=== PATIENT | female | born 1945 | race Caucasian/White ===

== ENCOUNTER 2023-08-23 08:38 | Inpatient (IN) ==
--- NOTE | 2023-08-04 14:35 | PAT Medication Instructions ---
Medication Instructions Date of Service August 04, 2023 Home Medications aspirin 81 mg capsule 81 mg PO QAM atorvastatin 40 mg tablet 40 mg PO HS cholecalciferol (vitamin D3) 125 mcg (5,000 unit) tablet (Vitamin D3) 125 mcg PO QAM cyanocobalamin (vitamin B-12) 1,000 mcg tablet (Vitamin B-12) 1,000 mcg PO QAM furosemide 40 mg tablet 40 mg PO DAILY PRN Edema gabapentin 300 mg capsule 300 mg PO TID losartan 100 mg tablet 100 mg PO QAM metoprolol succinate 25 mg tablet,extended release 24 hr 12.5 mg PO QAM montelukast 10 mg tablet 10 mg PO HS omeprazole 40 mg capsule,delayed release 40 mg PO DAILY PRN gerd thiamine HCl (vitamin B1) 100 mg tablet (Vitamin B-1) 100 mg PO QAM ASK your prescriber and surgeon aspirin 81 mg capsule 81 mg PO QAM DO NOT take the morning of surgery cholecalciferol (vitamin D3) 125 mcg (5,000 unit) tablet (Vitamin D3) 125 mcg PO QAM cyanocobalamin (vitamin B-12) 1,000 mcg tablet (Vitamin B-12) 1,000 mcg PO QAM furosemide 40 mg tablet 40 mg PO DAILY PRN Edema losartan 100 mg tablet 100 mg PO QAM thiamine HCl (vitamin B1) 100 mg tablet (Vitamin B-1) 100 mg PO QAM Take morning of surgery With a small sip of water, OTHERWISE NOTHING TO EAT OR DRINK AFTER MIDNIGHT: gabapentin 300 mg capsule 300 mg PO TID metoprolol succinate 25 mg tablet,extended release 24 hr 12.5 mg PO QAM omeprazole 40 mg capsule,delayed release 40 mg PO DAILY PRN gerd (if needed) Take evening before surgery atorvastatin 40 mg tablet 40 mg PO HS furosemide 40 mg tablet 40 mg PO DAILY PRN Edema (if needed) gabapentin 300 mg capsule 300 mg PO TID montelukast 10 mg tablet 10 mg PO HS omeprazole 40 mg capsule,delayed release 40 mg PO DAILY PRN gerd (if needed) Other Notes If you have any questions please call us at [phone] or [phone] or [phone] or [phone]
--- NOTE | 2023-08-09 14:08 | Anesthesiology Consultation ---
Date of Service August 09, 2023 Assessment & Plan (1) Encounter for pre-operative examination: - Infectious disease screening: Per assessment on 08/09/23: No known infectious disease contacts or current infectious disease symptoms. No noted recent Covid positive test result. - Heavy ETOH use: 4-6 beers/day (evening, no morning ETOH use per patient) - Cardiology visit (08/05/23): "Nuclear stress testing in April showed a very small apical infarct; but no evidence of reversible defects to suggest ischemia. She may therefore proceed with the planned operation without additional cardiac testing. She may be considered low to intermediate risk for perioperative cardiac complications (history of CAD with PCI in 2014 and chronic diastolic HF).. judicious use of IV fluids and blood products in the perioperative period is advised" - Patient acceptable risk for surgery pending surgeon-ordered PCP clearance (Dr. Calderon's office, appt 08/12). Chart Review Chart Review: Patient seen in Pre Admission Testing Teaching & Discussion Pre-Anesthesia Teaching/Discussion Notes: Instructed NPO after midnight before surgery,except medications with 15 cc of water. Medication instructions provided according to the PAT guidelines. History Surgery Operation Date: 08/23/23 07:45 Proposed Procedures p L2-S1 Decompression and Fusion with Spinal cord Monitoring - Macario Jones, Height/Weight Height: 5 ft 5 in Weight: 97.976 kg Allergies Allergy/AdvReac Type Severity Reaction Status Date / Time ramipril AdvReac Cough Verified 08/04/23 13:24 Medications Home Medications Medication Instructions Recorded Confirmed Last Taken aspirin 81 mg capsule 81 mg PO QAM 08/04/23 08/04/23 Unknown atorvastatin 40 mg tablet 40 mg PO HS 08/04/23 08/04/23 Unknown cholecalciferol (vitamin D3) 125 125 mcg PO QAM 08/04/23 08/04/23 Unknown mcg (5,000 unit) tablet (Vitamin D3) cyanocobalamin (vitamin B-12) 1,000 mcg PO QAM 08/04/23 08/04/23 Unknown 1,000 mcg tablet (Vitamin B-12) furosemide 40 mg tablet 40 mg PO DAILY PRN Edema 08/04/23 08/04/23 Unknown gabapentin 300 mg capsule 300 mg PO TID 08/04/23 08/04/23 Unknown losartan 100 mg tablet 100 mg PO QAM 08/04/23 08/04/23 Unknown metoprolol succinate 25 mg 12.5 mg PO QAM 08/04/23 08/04/23 Unknown tablet,extended release 24 hr montelukast 10 mg tablet 10 mg PO HS 08/04/23 08/04/23 Unknown omeprazole 40 mg capsule,delayed 40 mg PO DAILY PRN gerd 08/04/23 08/04/23 Unknown release thiamine HCl (vitamin B1) 100 mg 100 mg PO QAM 08/04/23 08/04/23 Unknown tablet (Vitamin B-1) Past Medical History Medical History Asthma Diastolic heart failure GERD (gastroesophageal reflux disease) occasional Hemochromatosis Follows with [facility], monitored with labs every 4 months (phlebotomy PRN, no recent phlebotomy required per patient) History of vertigo Hx of myocardial infarction Approximately 2014 > stents x2 Follows with Dr. 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" + unilateral oophorectomy Hx of appendectomy Hx of bilateral cataract extraction Hx of colonoscopy Hx of foot surgery metal removed from toe/top of foot (from accident) Hx of hysterectomy + partial ("half of") removal of remaining ovary Past Anesthesia History No Hx of Anesthesia Complications and No Family Hx of Anesthesia Complications History of PONV No Hx of PONV and No Hx of Motion Sickness Social History Smoking Status: Former smoker Do You Dip or Chew Tobacco: No Smoking End Date: Quit 2014 Hx Alcohol Use: Yes Alcohol type: beer alcohol intake frequency: 3 or more drinks per day (4-6 beers/day (evening, no morning ETOH use)) Hx Substance Use: No substance use type: does not use Review of Systems Patient denies chest pain, shortness of breath, fever, chills, cough, wheezing, palpitations. Physical Exam Vital Signs VITALS BP 101/57 P 64 TEMP 98.5 SP02 91%RA RESP 18 PHYSICAL Full cervical extension range of motion. Full TMJ range of motion. TMD 3 finger breaths Mallampati Score 3 Dentition: full upper lower, 7 remaining lower teeth Lungs: clear throughout to auscultation Cardiac: regular rate and rhythm, no murmurs noted Spine: normal Carotid arteries: negative bruit Extremities: no LE edema Short, thick neck Lab Results Anesthesia Preop Results Results Anesthesia Widget: Blood Type O Positive 08/09/23 Antibody Screen NEGATIVE 08/09/23 Testing Laboratory Results 08/06/23 WBC 5.72 H/H 14.2/43.2 PLATELETS 173 SODIUM 137 POTASSIUM 4.2 CHLORIDE 106 CO2 25.1 BUN 15.5 CREATININE 0.79 GLUCOSE 108 HGBA1C 5.6% PT 12.1 PTT 29.8 INR 1.06 UA negative nitrite/leuk est/blood Electrocardiogram Date: 04/14/23 Sinus rhythm at 73 bpm. Low QRS voltage in chest leads. Cannot rule out anterior infarct, age undetermined. Possible inferior infarct, probably old. Moderate ST depression. *Subsequent nuclear stress test 04/2023 and cardiology preop evaluation appointment 07/2023.* Chest X-Ray Date: 04/14/23 No acute cardiopulmonary disease. Lower lung atelectasis in setting of low lung volume. Stress Test Date: 05/10/23 Type: nuclear Lexiscan stress EKG is not indicative of ischemia. Resting EKG reveals sinus rhythm with low voltage complexes, and ageindeterminant anterior infarct cannot be completely ruled out. No significant STT changes seen with Lexiscan, as compared to baseline. Myocardial perfusion imaging: There is no transient ischemic dilation of the left ventricle during stress. No myocardial perfusion defects noted. Calculated LVEF greater than 65%.
[~2023-08-23 08:38] MED LIST: ACETAMINOPHEN 500 MG TAB PO SCH; CeleBREX 200 MG CAP PO SCH; GABAPENTIN 300 MG CAP PO SCH; LR 15ML/HR IV SCH; LR 60ML/HR IV SCH; ceFAZolin 2000MG 2,000 MG/15 ML SYR IV SCH
[2023-08-23] MEDS ORDERED: PHENYLEPHRINE HCL 10 MG/ML VIAL ONE (08:51)
[2023-08-23] MEDS ORDERED: LIDOCAINE 2% 2 ML VIAL/AMP(20MG/ML) INFIL ONE (08:51)
[2023-08-23] MEDS ORDERED: PROPOFOL IV EMULSION 10 MG/ML 20 ML VIAL IV ONE (08:51)
[2023-08-23] MEDS ORDERED: ONDANSETRON INJ 2 MG/ML 2 ML VIAL ONE (08:51)
[2023-08-23] MEDS ORDERED: DEXAMETHASONE SOD INJ 4 MG/ML VIAL ONE (08:51)
[2023-08-23] MEDS ORDERED: MIDAZOLAM HCL 1 MG/ML 2ML VIAL ONE ×2 (08:51→10:59)
[2023-08-23] MEDS ORDERED: ROCURONIUM BROMIDE 10 MG/ML 5 ML VIAL IV ONE ×2 (08:51→11:16)
[2023-08-23] MEDS ORDERED: fentaNYL citrate PF 100 MCG/2 ML VIAL ONE ×2 (08:51→11:28)
--- NOTE | 2023-08-23 10:30 | History & Physical Bridge Note ---
Date of Service August 23, 2023 History & Physical Bridge Note I have examined the patient, reviewed the History & Physical and in the interval since the performance of the History & Physical I have noted the following changes of clinical significance: no changes noted
--- NOTE | 2023-08-23 10:31 | History & Physical Report ---
Date of Service August 23, 2023 Assessment & Plan (1) Neurogenic claudication due to lumbar spinal stenosis: Plan: L2-S1 decompression and fusion History of Present Illness Chief Complaint: Back and bilateral leg pain Primary Care Provider: NO PCP This is a 77-year-old female who presents with chronic persistent back and leg pain after failing course of nonoperative care she is here for surgical intervention. Allergies Allergy/AdvReac Type Severity Reaction Status Date / Time ramipril AdvReac Cough Verified 08/23/23 09:07 Home Medications Medication Instructions Recorded Confirmed Type aspirin 81 mg capsule 81 mg PO QAM 08/04/23 08/23/23 History atorvastatin 40 mg tablet (Lipitor) 40 mg PO HS 08/04/23 08/23/23 History cholecalciferol (vitamin D3) 125 125 mcg PO QAM 08/04/23 08/23/23 History mcg (5,000 unit) tablet (Vitamin D3) cyanocobalamin (vitamin B-12) 1,000 mcg PO QAM 08/04/23 08/23/23 History 1,000 mcg tablet (Vitamin B-12) furosemide 40 mg tablet (Lasix) 40 mg PO DAILY PRN Edema 08/04/23 08/23/23 History gabapentin 300 mg capsule 300 mg PO TID 08/04/23 08/23/23 History losartan 100 mg tablet 100 mg PO QAM 08/04/23 08/23/23 History metoprolol succinate 25 mg 12.5 mg PO QAM 08/04/23 08/23/23 History tablet,extended release 24 hr montelukast 10 mg tablet 10 mg PO HS 08/04/23 08/23/23 History omeprazole 40 mg capsule,delayed 40 mg PO DAILY PRN gerd 08/04/23 08/23/23 History release thiamine HCl (vitamin B1) 100 mg 100 mg PO QAM 08/04/23 08/23/23 History tablet (Vitamin B-1) Past Med/Surg History Medical History Asthma Diastolic heart failure GERD (gastroesophageal reflux disease) occasional Hemochromatosis Follows with [facility] heme/onc, monitored with labs every 4 months (phlebotomy PRN, no recent phlebotomy required per patient) History of vertigo Hx of myocardial infarction Approximately 2014 > stents x2 Follows with Dr. 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" + unilateral oophorectomy Hx of appendectomy Hx of bilateral cataract extraction Hx of colonoscopy Hx of foot surgery metal removed from toe/top of foot (from accident) Hx of hysterectomy + partial ("half of") removal of remaining ovary Social History Smoking Status: Former smoker Tobacco Type: Cigarettes Smoking End Date: Quit 2014; Second Hand Exposure: Yes (hx); Do You Dip or Chew Tobacco: No; Tobacco Cessation Education Requested by Patient: No Hx Alcohol Use: Yes Alcohol type: beer Hx Substance Use: No Preferred Language: Japanese Communication Ability: Effective Spiritual Care Coordinator Required: No Beliefs That Will Affect Care: None Current Living Situation: Alone Other Information That Helps Us Care for You: No Feels Safe at Home: Yes Safety Concerns: Feels Safe At This Time Assistive Devices: Denture - Upper and Glasses Physical Exam Physical Exam: Patient is alert and oriented Heart regular in rhythm lungs clear Results & Data Results & Data Vital Signs (Past 12 Hours) Vital Signs Temp Pulse Resp BP Pulse Ox O2 Del Method 08/23/23 09:11 36.6 C 65 18 137/73 92 Room Air
[2023-08-23] MEDS ORDERED: ePHEDrine sulfate 50 MG/ML AMP IV PRN (10:40)
[2023-08-23] MEDS ORDERED: ONDANSETRON INJ 2 MG/ML 2 ML VIAL IV PRN ×2 (10:40→14:45)
[2023-08-23] MEDS ORDERED: PROMETHAZINE HCL 12.5 MG in SODIUM CHLORIDE 0.9% 50 ML IV PRN ×2 (10:40→14:45)
[2023-08-23] MEDS ORDERED: ATROPINE SULFATE 0.1 MG/ML 10ML SYR IV PRN (10:40)
[2023-08-23] MEDS ORDERED: fentaNYL citrate PF 100 MCG/2 ML VIAL IV PRN (10:40)
[2023-08-23] MEDS ORDERED: HYDROmorphone INJ 2 MG/ML SYR/VIAL IV PRN (10:40)
[2023-08-23] MEDS ORDERED: ceFAZolin 330 MG/ML 1 GM VIAL ONE (10:47)
[2023-08-23] MEDS ORDERED: BUPIVACAINE/EPINEPHRINE 0.5% MPF 1:200,000 30 ML VIAL ONE (10:47)
[2023-08-23] MEDS ORDERED: ePHEDrine sulfate 50 MG/5 ML SYR ONE (11:49)
[2023-08-23] MEDS ORDERED: FLOSEAL HEMOSTATIC MATRIX 10ML TOP ONE (11:53)
[2023-08-23] MEDS ORDERED: SURGICEL ABSORB HEMOSTAT 2IN X 14IN TOP ONE (12:24)
[2023-08-23] MEDS ORDERED: SUGAMMADEX SODIUM 200 MG/2 ML VIAL IV ONE (13:10)
--- NOTE | 2023-08-23 13:18 | Operative Report ---
Post Operative Report Pre & Post Diagnosis Operation Date: 08/23/23 10:25 Pre-Op Diagnosis: Neurogenic claudication due to lumbar spinal stenosis, L2-S1 Post-Op Diagnosis: Neurogenic claudication due to lumbar spinal stenosis, L2-S1 I identified the patient and participated in the time-out.: Yes Procedure Operation Date: 08/23/23 10:25 Actual Procedures #1 lumbar decompression with bilateral medial facetectomies and foraminotomies L2-L3, L3-L4, L4-5 and L5-S1. #2 posterior spinal fusion L2-S1. #3 placed posterior segmental instrumentation L2-S1. #4 interbody fusion L4-L5. #5 placement Spira limb by 26 mm at L4-5. #6 placement locally harvested morselized autograft in the posterior gutters. #7 placement of infuse collagen sponge combined with Koros in the posterior lateral gutters and Morpheus interbody space. Surgeon Macario Jones, DO Production Designer Paula Keyes Estimated Blood Loss 950 Findings See Below The patient is 5 foot 5 weighing over 100 kg with a BMI in excess of 36. This combined with an EBL of greater than 950 cc created significant technical difficulty from positioning exposure to final skin closure. This at least 50% increased operative time. Specimens None Indications This is a 77-year-old female who presents above-mentioned diagnosis after failed extensive course of nonoperative care is here for surgical invention. Description of Procedure Patient was met with identified informed consent obtained. Patient was then taken to the operative suite underwent patient placed in a prone position the Seney table top Fritz frame. All bony prominences well-padded eyes inspected to ensure no external pressure placed upon the. This point the lumbar spine was prepped and draped in a sterile fashion. Sharp dissection with the assistance of Bovie cautery from down to and exposing the lamina and transverse processes of L2-L3 L4-5 and S1 levels bilaterally from caudal cephalad fashion complete laminectomy of L5 4 3 and 2 was performed including bilateral medial facetectomies and foraminotomies addressing severe spinal stenosis. Pedicle screws were then placed in L2 L3-L4-L5 and S1 levels bilaterally with assistance of fluoroscopy the pelvis as wale contoured and placed. By way of transforaminal approach on the left complete discectomy L4-L5 was performed endplates guided to subcortical bleeding bone and 11 x 26 mm Spira cage filled with Morpheus bone graft tapped into position. The rods were then locked into final position bilaterally. The transverse processes of L2 L3-L4-L5 and the sacral ala burred to subcortical bleeding bone. Infuse collagen sponge, with Koros and local aut ograft placed in the posterior gutters. 15 round CHANG drain inserted. The incision was then closed with 1 Vicryl the fascia 2-0 Vicryl subcutaneously and 4 Monocryl for final skin closure. Steri-Strips sterile dressing placed. Patient awakened taken to PACU stable condition. Please note spinal cord monitoring was utilized at the procedure no changes noted. Lastly Paula Keyes was present at the entire procedure while the patient positioning complex portion of the surgery and final skin closure. I attest to the content of the Intraoperative Record and any orders documented therein. Any exceptions are noted below.
--- NOTE | 2023-08-23 13:33 | Fluoroscopy Report ---
INTRAOPERATIVE RADIOGRAPHS CLINICAL HISTORY: Lumbar spinal fusion. Fluoro time: 36 seconds Ka,r: 32.59 mGy FINDINGS: 3 spot fluoroscopic views of the lumbar spine are presented. There is postsurgical change f rom discectomy at L4-L5 with laminectomy and posterior fusion from L2-S1. Interpedicular screws are p resent at all levels. The orthopedic hardware appears intact. IMPRESSION: Intraoperative images from lumbar spinal fusion surgery as above. Electronically signed by: Radames Donis M.D. 08/23/2023 1:32 PM
[2023-08-23] MEDS ORDERED: SODIUM CHLORIDE 0.9% 1,000 ML IV SCH (14:45)
[2023-08-23] MEDS ORDERED: FAMOTIDINE 20 MG TAB PO PRN (14:45)
[2023-08-23] MEDS ORDERED: NALOXONE HCL 0.4 MG/1 ML VIAL/CARP IV PRN (14:45)
[2023-08-23] MEDS ORDERED: ALUMINUM/MAGNESIUM SUSP 30 ML UDC PO PRN (14:45)
[2023-08-23] MEDS ORDERED: LORazepam 0.5 MG TAB PO PRN (14:45)
[2023-08-23] MEDS ORDERED: hydrOXYzine HCl 25 MG TAB PO PRN (14:45)
[2023-08-23] MEDS ORDERED: HYDROmorphone INJ 0.5 MG/0.5 ML SYR IV PRN (14:45)
[2023-08-23] MEDS ORDERED: diphenhydrAMINE Capsule 25 MG CAP PO PRN (14:45)
[2023-08-23] MEDS ORDERED: SOD PHOSPHATE/SOD BIPHOSPHATE ENEMA 132 ML BTL PR PRN (14:45)
[2023-08-23] MEDS ORDERED: DO NOT ADMINISTER FLU VACCINE PRN (14:45)
[2023-08-23] MEDS ORDERED: HYDROmorphone INJ 1 MG/ML SYRINGE IV PRN (14:45)
[2023-08-23] MEDS ORDERED: METOCLOPRAMIDE HCL INJ 5 MG/ML 2 ML VIAL IV PRN (14:45)
[2023-08-23] MEDS ORDERED: FUROSEMIDE 40 MG TAB PO PRN (14:45)
[2023-08-23] MEDS ORDERED: LORazepam 0.5 MG in SYRINGE 0.25 ML IV PRN (14:45)
[2023-08-23] MEDS ORDERED: traMADol HCL 50 MG TABLET PO PRN (14:45)
[2023-08-23] MEDS ORDERED: ONDANSETRON 4 MG OD TAB PO PRN (14:45)
[2023-08-23] MEDS ORDERED: ACETAMINOPHEN 1,000 MG/100 ML VIAL IV PRN (14:45)
[2023-08-23] MEDS ORDERED: MAGNESIUM HYDROXIDE SUSP 30 ML UDC PO PRN (14:45)
[2023-08-23] MEDS ORDERED: bisacodyL 10 MG SUPP PR PRN (14:45)
[2023-08-23] MEDS ORDERED: DO NOT ADMINISTER PNEUMOCOCCAL VACCINE PRN (14:45)
[2023-08-23] MEDS ORDERED: PANTOprazole 40 MG TAB PO PRN (15:00)
--- NOTE | 2023-08-23 15:30 | Anesthesiology Progress Note ---
Date of Service August 23, 2023 Anesthesia Post Procedure Vital Signs Vital Signs: Temp Pulse Pulse Resp BP Pulse Ox O2 Del Method 08/23/23 15:28 36.3 C L 70 18 115/75 98 Nasal Cannula 08/23/23 14:53 36.3 C L 65 16 163/70 H 95 Nasal Cannula 08/23/23 14:20 36.3 C L 64 14 110/70 98 Nasal Cannula 08/23/23 13:50 68 13 121/69 96 Oxymask 08/23/23 13:40 73 11 L 130/71 98 Oxymask 08/23/23 13:32 36.8 C 70 18 147/78 H 95 Oxymask 08/23/23 09:11 36.6 C 65 18 137/73 92 Room Air O2 Flow Rate 08/23/23 15:28 2 08/23/23 14:53 2 08/23/23 14:20 2 08/23/23 13:50 3 08/23/23 13:40 5 08/23/23 13:32 9 08/23/23 09:11 Pain Intensity Back: Pain Intensity: 0 Transfer of Care Handoff Completed per policy Notes Mental Status: alert / awake / arousable and participated in evaluation Patient Amnestic to Procedure: Yes Nausea / Vomiting: adequately controlled Pain: adequately controlled Airway Patency, RR, SpO2: stable & adequate BP & HR: stable & adequate Hydration State: stable & adequate Anesthetic Complications: no major complications apparent
--- NOTE | 2023-08-23 16:06 | Hospitalist Consultation ---
Date of Consultation August 23, 2023 Assessment & Plan (1) S/P spinal surgery: Lumbar spinal fusion with Dr. Jones on 08/23 Postop lumbar spine x-ray revealed orthopedic hardware intact Perioperative antibiotics, DVT PPx, fluids, and pain control per the primary team Hemoglobin was 14.2 and HCT 43.2 on 08/06/2023 Notable 950 cc EBL during surgery Agree with a.m. CBC, BMP; we will follow PT/OT consulted (2) Hypertension: BP 119/76 at time of consult Okay to continue metoprolol Hold losartan x 1 day; restart on the morning of 08/25 (3) Hyperlipidemia: Continue atorvastatin (4) GERD (gastroesophageal reflux disease): Continue omeprazole, or pantoprazole equivalent (5) Hx of myocardial infarction: Okay to continue aspirin daily for heart stents (6) Asthma: Plan Agree with medical decision making as above: Disposition: MedSurg Advance diet as tolerated VTE PPx: Teds/SCDs Thank you for allowing us to participate in the care of this patient, we will continue to follow. Supervising Physician Co-Signing Physician Notes I personally saw and examined the patient. I independently reviewed the labs, problem list, medication list, past medical history and family history. I verified all werner points and agree with Bernardino Silver PA-C with the following exceptions and/or additions: 77 year old female POD#0 lumbar spinal fusion. EBL 950ml. O/E A&Ox3, HS RRR, no murmurs, Chest CTAB, Abdo SNT, no CVA tenderness A/P VTE/Pain/Bowel management per primary ortho spine team Hold losartan pending pending serial BP measurements GERD - make pantoprazole BERTA daily while here History of Present Illness Reason for Consultation: Medical management Requesting Physician: Macario Jones DO Attending Physician: Macario Jones DO History of Present Illness Karen is a pleasant 77-year-old female with PMH of lumbar spinal stenosis, asthma, diastolic heart failure, GERD, hemochromatosis, vertigo, DC (s/p stents x 2), HLD, HTN, and urgency incontinence. She presented for lumbar decompression of L2 to S1 with Dr. Macario Jones on 08/23. Actual procedures performed: #1 lumbar decompression with bilateral medial facetectomies and foraminotomies L2-L3, L3-L4, L4-5 and L5-S1. #2 posterior spinal fusion L2-S1. #3 placed posterior segmental instrumentation L2-S1. #4 interbody fusion L4-L5. #5 placement Spira limb by 26 mm at L4-5. #6 placement locally harvested morselized autograft in the posterior gutters. #7 placement of infuse collagen sponge combined with Koros in the posterior lateral gutters and Morpheus interbody space. Per review of operative note, EBL was listed as 950 cc, and there was significant technical difficulty from positioning exposure to final skin closure. Patient reports her lower back pain is 3/10 at time of consult; she describes it as dull, constant; no radiation. Movement exacerbates the pain. Patient report s she has been drinking well since being up, but has not had a desire to eat. She has a Hilario in place. No supplemental at home oxygen use or CPAP's. Patient reports that she took aspirin, omeprazole, and metoprolol this morning as instructed. She has no new complaints at time of consult. Former tobacco cigarette smoker; quit in 2014. Patient endorses that she drinks around 4 beers daily; last drink was the evening of 08/22 where she drank around 4 beers; she denies a hx of alcohol withdrawal. Per review of patient's vitals postop, she has been mildly hypertensive, but otherwise vitals have been stable. ROS: Patient endorses lower back pain. Patient denies fever, chills, sweating, headache, dizziness, chest pain, SOB, pleuritic CP, abdominal pain, N/V/D, saddle anesthesia, urinary incontinence, burning with urination, or numbness/tingling in the legs or arms. Allergies Allergy/AdvReac Type Severity Reaction Status Date / Time ramipril AdvReac Cough Verified 08/23/23 09:07 Home Medications Medication Instructions Recorded Confirmed Type aspirin 81 mg capsule 81 mg PO QAM 08/04/23 08/23/23 History atorvastatin 40 mg tablet (Lipitor) 40 mg PO HS 08/04/23 08/23/23 History cholecalciferol (vitamin D3) 125 125 mcg PO QAM 08/04/23 08/23/23 History mcg (5,000 unit) tablet (Vitamin D3) cyanocobalamin (vitamin B-12) 1,000 mcg PO QAM 08/04/23 08/23/23 History 1,000 mcg tablet (Vitamin B-12) furosemide 40 mg tablet (Lasix) 40 mg PO DAILY PRN Edema 08/04/23 08/23/23 History gabapentin 300 mg capsule 300 mg PO TID 08/04/23 08/23/23 History metoprolol succinate 25 mg 12.5 mg PO QAM 08/04/23 08/23/23 History tablet,extended release 24 hr montelukast 10 mg tablet 10 mg PO HS 08/04/23 08/23/23 History omeprazole 40 mg capsule,delayed 40 mg PO DAILY PRN gerd 08/04/23 08/23/23 History release thiamine HCl (vitamin B1) 100 mg 100 mg PO QAM 08/04/23 08/23/23 History tablet (Vitamin B-1) oxycodone 5 mg tablet 5 mg PO Q6H PRN pain #30 tabs 08/24/23 Rx tramadol 50 mg tablet 50 mg PO Q6H PRN pain, moderate 08/24/23 Rx #30 tabs losartan 50 mg tablet 50 mg PO QAM 30 days #30 tabs 08/26/23 Rx Patient History Medical History (Updated 08/24/23 @ 13:02 by Zuleima Pierce PA-C) Diastolic heart failure History of vertigo Urgency incontinence Hemochromatosis Follows with [facility], monitored with labs every 4 months (phlebotomy PRN, no recent phlebotomy required per patient) Hx of myocardial infarction Approximately 2014 > stents x2 Follows with Dr. Balderas/[facility] Asthma Hyperlipidemia Hypertension GERD (gastroesophageal reflux disease) occasional Surgical History (Updated 08/23/23 @ 16:05 by Bernardino Silver PA-C) Hx of bilateral cataract extraction Hx of foot surgery metal removed from toe/top of foot (from accident) Hx of hysterectomy + partial ("half of") removal of remaining ovary History of surgery of uterus "for a tipped uterus" + unilateral oophorectomy Hx of appendectomy Hx of colonoscopy History of heart artery stent Approximately 2014 > Xience stents x2 History of cardiac cath Approximately 2014 > Xience stents x2 Social History Smoking Status: Former smoker Tobacco Type: Cigarettes Second Hand Exposure: Yes (hx); Do You Dip or Chew Tobacco: No; Hx Alcohol Use: Yes Alcohol type: beer Hx Substance Use: No Preferred Language: Tristanian Communication Ability: Effective Special Education Professional Required: No Beliefs That Will Affect Care: None Current Living Situation: Alone Feels Safe at Home: Yes Assistive Devices: Cane Review of Systems Review of Systems: See HPI above Physical Exam Physical Exam: General: no acute distress; pleasant affect; non-toxic appearing; well- nourished; cooperative HEENT: normocephalic, atraumatic; no scleral icterus; PERRLA; moist mucus membrane; vision and hearing grossly intact Neck: supple; no lymphadenopathy; trachea midline Skin: warm, dry without signs of tenting; no cyanosis; no rashes, bruising, lesions, or erythema noted CV: chest wall NTP; RRR; S1/S2 normal; no murmurs/rubs/gallops; pulses intact and symmetric at radial, DP, and PT Lungs: no acute respiratory distress; symmetrical chest wall expansion; clear breath sounds across all lung espana w/o adventitious sounds; no wheezing ABD: Soft, NTP; BS present; no rebound/guarding; no ascites MSK: no tics or fasciculations; no edema noted in the LEs b/l, nonerythematous; patient demonstrates the ability to wiggle toes bilaterally Neuro: A&Ox3; normal mood and affect; fluent speech; no focal deficits; sensation grossly intact in the LEs b/l assessed via light touch at the feet; pulses at the feet neurovascularly intact Results & Data Results & Data Vital Signs (Past 12 Hours) Vital Signs Temp Pulse Pulse Resp BP Pulse Ox O2 Del Method 08/23/23 15:28 36.3 C L 70 18 115/75 98 Nasal Cannula 08/23/23 14:53 36.3 C L 65 16 163/70 H 95 Nasal Cannula 08/23/23 14:20 36.3 C L 64 14 110/70 98 Nasal Cannula 08/23/23 13:50 68 13 121/69 96 Oxymask 08/23/23 13:40 73 11 L 130/71 98 Oxymask 08/23/23 13:32 36.8 C 70 18 147/78 H 95 Oxymask 08/23/23 09:11 36.6 C 65 18 137/73 92 Room Air O2 Flow Rate 08/23/23 15:28 2 08/23/23 14:53 2 08/23/23 14:20 2 08/23/23 13:50 3 08/23/23 13:40 5 08/23/23 13:32 9 08/23/23 09:11 Laboratory Results Abnormal lab results 08/23/23 Range/Units 08:59 Crossmatch See Detail Diagnostic Findings Lumbar Spine X-Ray 08/23/23 10:25 INTRAOPERATIVE RADIOGRAPHS CLINICAL HISTORY: Lumbar spinal fusion. Fluoro time: 36 seconds Ka,r: 32.59 mGy FINDINGS: 3 spot fluoroscopic views of the lumbar spine are presented. There is postsurgical change from discectomy at L4-L5 with laminectomy and posterior fusion from L2-S1. Interpedicular screws are present at all levels. The orthopedic hardware appears intact. IMPRESSION: Intraoperative images from lumbar spinal fusion surgery as above. Electronically signed by: Radames Donis M.D. 08/23/2023 1:32 PM PG Care Time/CCT Total # of Minutes Spent Total Time Spent with Patient: Total time spent is greater than 50% in coordination of care (as documented) at patient's floor/unit and/or counseling patient: [place] [address] IN/OBS CONSULT LVL 3,45M Patient Type New Medical Decision Making Low Complexity Diagnoses S/P spinal surgery Z98.890 Hypertension I10 Hyperlipidemia E78.5 GERD (gastroesophageal reflux disease) K21.9 Hx of myocardial infarction I25.2 Asthma J45.909
[2023-08-23] MEDS: ACETAMINOPHEN 500 MG TAB PO PRN (16:13)
[2023-08-23] MEDS: GABAPENTIN 300 MG CAP PO SCH ×2 (16:56→21:42)
[2023-08-23] MEDS: ceFAZolin 2000MG 2,000 MG/15 ML SYR IV SCH (19:23)
[2023-08-23] MEDS: MONTELUKAST SODIUM 10 MG TABLET PO SCH (20:51)
[2023-08-23] MEDS: oxyCODONE HCL IR 5 MG TAB (IMMEDIATE RELEASE) PO PRN (20:51)
[2023-08-23] MEDS: DOCUSATE SODIUM/SENNA 50/8.6MG TAB PO SCH (20:52)
[2023-08-23] MEDS: ATORVASTATIN 40 MG TAB PO SCH (20:52)
[2023-08-24] MEDS: ceFAZolin 2000MG 2,000 MG/15 ML SYR IV SCH (03:25)
[2023-08-24] MEDS: oxyCODONE HCL IR 5 MG TAB (IMMEDIATE RELEASE) PO PRN ×3 (05:48→21:24)
[2023-08-24] MEDS ORDERED: POLYETHYLENE (MIRALAX) 17 GM PACK PO SCH (06:00)
[2023-08-24 07:58] LABS: Basophils # (auto) 0.02 K/uL (0.00-0.20); Basophils % (auto) 0.2 %; Hematocrit (blood only) 31.6 % (37.0-47.0); Hemoglobin 10.6 g/dl (12.0-16.0); Immature Granulocytes # (auto) 0.02 K/uL (0.01-0.20); Immature Granulocytes % (auto) 0.2 %; Lymphocytes # (auto) 1.18 K/uL (1.20-3.40); Lymphocytes % (auto) 11.7 %; Mean Corpuscular Hemoglobin 34.1 pg (25.0-34.0); Mean Corpuscular Hgb Conc 33.5 g/dL (32.0-36.0); Mean Corpuscular Volume 101.6 fL (80.0-100.0); Mean Platelet Volume 9.8 fL (9.4-12.4); Monocytes # (auto) 0.91 K/uL (0.11-0.59); Neutrophils # (auto) 7.95 K/uL (1.40-6.50); Neutrophils % (auto) 78.9 %; Platelet Count 152 K/uL (130-400); RDW Coefficient of Variation 12.7 % (11.5-14.5); RDW Standard Deviation 47.4 fL (36.4-46.3); Red Blood Count 3.11 M/uL (4.20-5.40); White Blood Count 10.08 K/ul (4.8-10.8)
[2023-08-24] MEDS: dexAMETHasone 6 MG in SYRINGE 0 ML IV SCH (08:14)
[2023-08-24] MEDS: CYANOCOBALAMIN (B-12) 500 MCG TABLET PO SCH (08:14)
[2023-08-24] MEDS: ASPIRIN 81 MG ECTAB PO SCH (08:15)
[2023-08-24] MEDS: GABAPENTIN 300 MG CAP PO SCH ×3 (08:15→20:23)
[2023-08-24] MEDS: THIAMINE HCL 100 MG TAB PO SCH (08:15)
[2023-08-24] MEDS: CHOLECALCIFEROL 125 MCG (5,000 UNITS) TAB PO SCH (08:15)
[2023-08-24] MEDS: METOPROLOL SUCC 25MG EXT REL TAB PO SCH (08:15)
[2023-08-24] MEDS: PANTOprazole 40 MG TAB PO SCH (08:15)
[2023-08-24 08:46] LABS: BUN Creatinine Ratio 17.3 (10-20); Calcium 9.2 mg/dl (8.6-10.3); Creatinine Clr Calc Pharmacy 74.8 ml/min; Est GFR (African American) 89.7 ml/min; Est GFR (Non-African American) 77.4 ml/min; Potassium 4.4 mmol/L (3.5-5.1)
[2023-08-24] MEDS ORDERED: LOSARTAN POTASSIUM 50 MG TAB PO SCH ×2 (09:00)
--- NOTE | 2023-08-24 10:11 | Orthopedic Progress Note ---
Date of Service August 24, 2023 Assessment & Plan (1) Neurogenic claudication due to lumbar spinal stenosis: Plan: At this point we will continue physical therapy monitor CHANG output hopefully discharge home in the next few days. Admission and Anticipated Discharge Date Admission Date: August 23, 2023 Subjective Back pain controlled leg symptoms markedly improved Physical Exam Physical Exam: Patient is in her chair at the bedside. Is good strength testing. Results & Data Vital Signs (Past 12 Hours) Vital Signs Temp Pulse Pulse Resp BP BP Pulse Ox 08/24/23 10:09 54 L 08/24/23 07:57 36.6 C 64 16 102/63 91 08/24/23 02:00 36.3 C L 64 16 110/70 95 08/23/23 22:45 36.8 C 70 18 116/70 93 O2 Del Method 08/24/23 10:09 08/24/23 07:57 Room Air 08/24/23 02:00 Room Air 08/23/23 22:45 Room Air Queries Orthopedic Spine Acute Posthemorrhagic Anemia: Yes Obesity: Yes
--- NOTE | 2023-08-24 13:03 | Hospitalist Progress Note ---
Date of Service August 24, 2023 Assessment & Plan (1) S/P spinal surgery: Plan: Lumbar spinal fusion with Dr. Jones on 08/23 - DVT PPx, fluids, and pain control per the primary team Hemoglobin 14.2 --> 10.6, acute blood loss anemia - Notable 950 cc EBL during surgery - patient saturated 2 dressings already today, I notified Dr. Jones -Recheck CBC in a.m. PT/OT consulted (2) Hypertension: Plan: Okay to continue metoprolol Hold losartan x 1 day; restart on the morning of 08/25 (3) Hyperlipidemia: Plan: Continue atorvastatin (4) GERD (gastroesophageal reflux disease): Plan: Continue omeprazole, or pantoprazole equivalent (5) Hx of myocardial infarction: Plan: Okay to continue aspirin daily for heart stents (6) Hemochromatosis: Plan: Per patient, blood work every 4 months has not needed phlebotomy recently Plan Disposition: Continued inpatient stay, we will continue to follow CBC VTE PPx: Teds/SCDs Thank you for allowing us to participate in the care of this patient, we will continue to follow. Admission and Anticipated Discharge Date Admission Date: August 23, 2023 Subjective Patient seen sitting up in the chair, multiple family members at bedside. Patient is reporting some back pain but just took a lap around the unit. Per nursing has required 1 dressing change and current dressing is saturated. Patient denies any lightheadedness or dizziness, also did not have either of the symptoms while she was walking. She has moved her bowels. Good appetite. History of hemochromatosis, diagnosed 12 years ago. Gets lab work done every 4 months to check her iron, has not needed phlebotomy. Review of Systems Review of Systems: All systems reviewed & are unremarkable except as noted in Subjective Physical Exam Physical Exam: General: NAD, VS as above Resp: normal respiratory effort, lungs clear to auscultation CV: RRR, no murmur, Abd: normal bowel sounds, non tender, no hepatosplenomegaly Back: Dressing in place, saturated with blood. RN aware. Blood also saturating her underwear. Minimal bloody drainage in CHANG drain. Extremities: Moves all extremities, Neuro: A&O x3, Skin: intact, no lesions noted Results & Data Results & Data Vital Signs (Past 12 Hours) Vital Signs Temp Pulse Pulse Resp BP BP Pulse Ox 08/24/23 11:31 36.7 C 64 18 126/74 92 08/24/23 10:09 54 L 08/24/23 07:57 36.6 C 64 16 102/63 91 08/24/23 02:00 36.3 C L 64 16 110/70 95 O2 Del Method 08/24/23 11:31 Room Air 08/24/23 10:09 08/24/23 07:57 Room Air 08/24/23 02:00 Room Air Laboratory Results CBC, chemistry reviewed PG Care Time/CCT Total # of Minutes Spent Total Time Spent with Patient: Total time spent is greater than 50% in coordination of care (as documented) at patient's floor/unit and/or counseling patient: Coding Level of Care Code 94486 SUB INP/OBS CARE 2/35MIN Diagnoses S/P spinal surgery Z98.890 Hypertension I10 Hyperlipidemia E78.5 GERD (gastroesophageal reflux disease) K21.9 Hx of myocardial infarction I25.2 Hemochromatosis E83.119
[2023-08-24] MEDS: ACETAMINOPHEN 500 MG TAB PO PRN (17:26)
[2023-08-24] MEDS: ATORVASTATIN 40 MG TAB PO SCH (20:23)
[2023-08-24] MEDS: MONTELUKAST SODIUM 10 MG TABLET PO SCH (20:23)
[2023-08-24] MEDS: DOCUSATE SODIUM/SENNA 50/8.6MG TAB PO SCH (20:23)
[2023-08-25] MEDS: ACETAMINOPHEN 500 MG TAB PO PRN (01:02)
[2023-08-25] MEDS: THIAMINE HCL 100 MG TAB PO SCH (07:41)
[2023-08-25] MEDS: PANTOprazole 40 MG TAB PO SCH (07:41)
[2023-08-25] MEDS: dexAMETHasone 6 MG in SYRINGE 0 ML IV SCH (07:41)
[2023-08-25] MEDS: METOPROLOL SUCC 25MG EXT REL TAB PO SCH (07:41)
[2023-08-25] MEDS: ASPIRIN 81 MG ECTAB PO SCH (07:42)
[2023-08-25] MEDS: GABAPENTIN 300 MG CAP PO SCH ×3 (07:42→20:04)
[2023-08-25] MEDS: CHOLECALCIFEROL 125 MCG (5,000 UNITS) TAB PO SCH (07:42)
[2023-08-25] MEDS: oxyCODONE HCL IR 5 MG TAB (IMMEDIATE RELEASE) PO PRN ×3 (07:42→20:04)
[2023-08-25] MEDS: CYANOCOBALAMIN (B-12) 500 MCG TABLET PO SCH (07:42)
[2023-08-25 08:42] LABS: Basophils # (auto) 0.03 K/uL (0.00-0.20); Basophils % (auto) 0.3 %; Eosinophils # (auto) 0.03 K/uL (0.00-0.50); Eosinophils % (auto) 0.3 %; Immature Granulocytes # (auto) 0.05 K/uL (0.01-0.20); Immature Granulocytes % (auto) 0.5 %; Lymphocytes # (auto) 1.99 K/uL (1.20-3.40); Lymphocytes % (auto) 19.5 %; Mean Corpuscular Hemoglobin 33.1 pg (25.0-34.0); Mean Corpuscular Hgb Conc 32.3 g/dL (32.0-36.0); Mean Corpuscular Volume 102.6 fL (80.0-100.0); Mean Platelet Volume 9.8 fL (9.4-12.4); Monocytes # (auto) 1.04 K/uL (0.11-0.59); Monocytes % (auto) 10.2 %; Neutrophils # (auto) 7.08 K/uL (1.40-6.50); Neutrophils % (auto) 69.2 %; Platelet Count 142 K/uL (130-400); RDW Coefficient of Variation 12.9 % (11.5-14.5); Red Blood Count 3.02 M/uL (4.20-5.40); White Blood Count 10.22 K/ul (4.8-10.8)
[2023-08-25] MEDS ORDERED: LOSARTAN POTASSIUM 50 MG TAB PO SCH (09:00)
--- NOTE | 2023-08-25 10:37 | Hospitalist Progress Note ---
Date of Service August 25, 2023 Assessment & Plan (1) S/P spinal surgery: Plan: Lumbar spinal fusion with Dr. Jones on 08/23 - DVT PPx, fluids, and pain control per the primary team Hemoglobin 14.2 --> 10.6, acute blood loss anemia - Notable 950 cc EBL during surgery - Hgb stable 08/25 PT/OT consulted - recommend home at discharge (2) Hypertension: Plan: Okay to continue metoprolol home losartan resumed 08/25 (3) Hyperlipidemia: Plan: Continue atorvastatin (4) GERD (gastroesophageal reflux disease): Plan: Continue omeprazole, or pantoprazole equivalent (5) Hx of myocardial infarction: Plan: Okay to continue aspirin daily for heart stents (6) Hemochromatosis: Plan: Per patient, blood work every 4 months has not needed phlebotomy recently Plan Disposition: medically stable VTE PPx: Teds/SCDs Thank you for allowing us to participate in the care of this patient, we will continue to follow Admission and Anticipated Discharge Date Admission Date: August 23, 2023 Subjective Patient seen sitting up in the chair. Pain is controlled when sitting, worse with transfers. Good appetite, moved bowels yesterday. No lightheadedness or dizziness with standing. Plan is to go home at discharge Review of Systems Review of Systems: All systems reviewed & are unremarkable except as noted in Subjective Physical Exam Physical Exam: General: NAD, VS as above Resp: normal respiratory effort, lungs clear to auscultation CV: RRR, no murmur, Abd: normal bowel sounds, non tender, no hepatosplenomegaly Back: Dressing in place, c/d/i. Extremities: Moves all extremities, bilateral lower extremity isidro hose in place. No edema Neuro: A&O x3, Skin: intact, no lesions noted Results & Data Results & Data Vital Signs (Past 12 Hours) Vital Signs Temp Pulse Resp BP Pulse Ox O2 Del Method 08/25/23 07:33 36.7 C 61 18 112/69 91 Room Air Laboratory Results CBC reviewed PG Care Time/CCT Total # of Minutes Spent Total Time Spent with Patient: Total time spent is greater than 50% in coordination of care (as documented) at patient's floor/unit and/or counseling patient: Coding Level of Care Code 66333 SUB INP/OBS CARE 2/35MIN Diagnoses S/P spinal surgery Z98.890 Hypertension I10 Hyperlipidemia E78.5 GERD (gastroesophageal reflux disease) K21.9 Hx of myocardial infarction I25.2 Hemochromatosis E83.119
--- NOTE | 2023-08-25 10:48 | Orthopedic Progress Note ---
Date of Service August 25, 2023 Assessment & Plan (1) Neurogenic claudication due to lumbar spinal stenosis: Plan: At this point we will continue physical therapy monitor CHANG output anticipate discharge home in the next few days. Admission and Anticipated Discharge Date Admission Date: August 23, 2023 Subjective Back pain controlled leg symptoms improved Physical Exam Physical Exam: Patient is ambulating the halls with a walker. She is comfortable. Is good strength testing. Results & Data Vital Signs (Past 12 Hours) Vital Signs Temp Pulse Resp BP Pulse Ox O2 Del Method 08/25/23 07:33 36.7 C 61 18 112/69 91 Room Air Queries Orthopedic Spine Acute Posthemorrhagic Anemia: Yes Obesity: Yes
[2023-08-25] MEDS: DOCUSATE SODIUM/SENNA 50/8.6MG TAB PO SCH (20:04)
[2023-08-25] MEDS: ATORVASTATIN 40 MG TAB PO SCH (20:04)
[2023-08-25] MEDS: MONTELUKAST SODIUM 10 MG TABLET PO SCH (20:04)
[2023-08-26] MEDS: ACETAMINOPHEN 500 MG TAB PO PRN ×2 (02:46→16:11)
[2023-08-26] MEDS: GABAPENTIN 300 MG CAP PO SCH ×3 (08:05→19:50)
[2023-08-26] MEDS: CYANOCOBALAMIN (B-12) 500 MCG TABLET PO SCH (08:05)
[2023-08-26] MEDS: CHOLECALCIFEROL 125 MCG (5,000 UNITS) TAB PO SCH (08:05)
[2023-08-26] MEDS: THIAMINE HCL 100 MG TAB PO SCH (08:05)
[2023-08-26] MEDS: PANTOprazole 40 MG TAB PO SCH (08:05)
[2023-08-26] MEDS: dexAMETHasone 6 MG in SYRINGE 0 ML IV SCH (08:06)
[2023-08-26] MEDS: ASPIRIN 81 MG ECTAB PO SCH (08:06)
[2023-08-26] MEDS: oxyCODONE HCL IR 5 MG TAB (IMMEDIATE RELEASE) PO PRN ×3 (08:13→23:02)
--- NOTE | 2023-08-26 08:34 | Orthopedic Progress Note ---
Date of Service August 26, 2023 Assessment & Plan (1) Neurogenic claudication due to lumbar spinal stenosis: Plan: We will continue physical therapy today. Discontinue her drain today change her dressing and anticipate discharge home tomorrow. Admission and Anticipated Discharge Date Admission Date: August 23, 2023 Subjective Back pain controlled leg pain improved Physical Exam Physical Exam: Patient is in the chair at the bedside. Is comfortable extra strength testing. Results & Data Vital Signs (Past 12 Hours) Vital Signs Temp Pulse Resp BP Pulse Ox O2 Del Method 08/26/23 07:29 36.7 C 60 14 108/67 92 Room Air 08/26/23 05:43 115/68 Queries Orthopedic Spine Acute Posthemorrhagic Anemia: Yes Obesity: Yes
--- NOTE | 2023-08-26 10:45 | Hospitalist Progress Note ---
Date of Service August 26, 2023 Assessment & Plan (1) S/P spinal surgery: Plan: Lumbar spinal fusion with Dr. Jones on 08/23 - DVT PPx, fluids, and pain control per the primary team Hemoglobin 14.2 --> 10.6, acute blood loss anemia - Notable 950 cc EBL during surgery - Hgb stable 08/25 PT/OT consulted - recommend home at discharge, hopefully 2/2 (2) Hypertension: Plan: Okay to continue metoprolol Losartan decreased to 50mg 08/26 Patient asymptomatic with episodes of hypotension. (3) Hyperlipidemia: Plan: Continue atorvastatin (4) GERD (gastroesophageal reflux disease): Plan: Continue omeprazole, or pantoprazole equivalent (5) Hx of myocardial infarction: Plan: Okay to continue aspirin daily for heart stents (6) Hemochromatosis: Plan: Per patient, blood work every 4 months has not needed phlebotomy recently Plan Disposition: medically stable VTE PPx: Teds/SCDs Thank you for allowing us to participate in the care of this patient, we will continue to follow BPs Admission and Anticipated Discharge Date Admission Date: August 23, 2023 Subjective Patient seen lying in bed, has walked with PT today. Drain removed. Pain well controlled. Asymptomatic with hypotension - discussed how I decreased her BP meds for this morning and she will need to follow up with her PCP regarding her dosage in the future. Encouraged her to use PRN stool softener this evening if she does not have a BM. Review of Systems Review of Systems: All systems reviewed & are unremarkable except as noted in Subjective Physical Exam Physical Exam: General: NAD, VS as above Resp: normal respiratory effort, lungs clear to auscultation CV: RRR, no murmur, Abd: normal bowel sounds, non tender, no hepatosplenomegaly Extremities: Moves all extremities, bilateral lower extremity isidro hose in place. No edema Neuro: A&O x3, Results & Data Results & Data Vital Signs (Past 12 Hours) Vital Signs Temp Pulse Resp BP Pulse Ox O2 Del Method 08/26/23 08:00 Room Air 08/26/23 07:29 36.7 C 60 14 108/67 92 Room Air 08/26/23 05:43 115/68 PG Care Time/CCT Total # of Minutes Spent Total Time Spent with Patient: Total time spent is greater than 50% in coordination of care (as documented) at patient's floor/unit and/or counseling patient: Coding Level of Care Code 07687 SUB INP/OBS CARE MIN Diagnoses S/P spinal surgery Z98.890 Hypertension I10 Hyperlipidemia E78.5 GERD (gastroesophageal reflux disease) K21.9 Hx of myocardial infarction I25.2 Hemochromatosis E83.119
[2023-08-26] MEDS: METOPROLOL SUCC 25MG EXT REL TAB PO SCH (10:59)
[2023-08-26] MEDS: LOSARTAN POTASSIUM 50 MG TAB PO SCH (11:00)
[2023-08-26] MEDS ORDERED: POLYETHYLENE (MIRALAX) 17 GM PACK PO PRN (13:11)
[2023-08-26] MEDS: MONTELUKAST SODIUM 10 MG TABLET PO SCH (19:50)
[2023-08-26] MEDS: ATORVASTATIN 40 MG TAB PO SCH (19:50)
[2023-08-26] MEDS: DOCUSATE SODIUM/SENNA 50/8.6MG TAB PO SCH (19:50)
[2023-08-27] MEDS: ACETAMINOPHEN 500 MG TAB PO PRN ×2 (07:34→13:31)
[2023-08-27] MEDS: THIAMINE HCL 100 MG TAB PO SCH (08:07)
[2023-08-27] MEDS: GABAPENTIN 300 MG CAP PO SCH ×2 (08:07→13:31)
[2023-08-27] MEDS: ASPIRIN 81 MG ECTAB PO SCH (08:08)
[2023-08-27] MEDS: CYANOCOBALAMIN (B-12) 500 MCG TABLET PO SCH (08:08)
[2023-08-27] MEDS: PANTOprazole 40 MG TAB PO SCH (08:08)
[2023-08-27] MEDS: METOPROLOL SUCC 25MG EXT REL TAB PO SCH (08:08)
[2023-08-27] MEDS: LOSARTAN POTASSIUM 50 MG TAB PO SCH (08:08)
--- NOTE | 2023-08-27 08:21 | Discharge Summary ---
Date of Service August 27, 2023 Admission HPI Per Admitting Provider This is a 77-year-old female who presents with chronic persistent back and leg pain after failing course of nonoperative care she is here for surgical intervention. Principal Diagnosis Lumbar spinal stenosis with neurogenic claudication Discharge Data Allergies Allergy/AdvReac Type Severity Reaction Status Date / Time ramipril AdvReac Cough Verified 08/23/23 09:07 Consultations 08/18/23 13:25 Consult Hospitalist Routine Procedures Performed Operation Date: 08/23/23 10:25 Actual Procedures p L2-S1 Decompression and Fusion, Spinal Cord Monitoring(Not Applicable) - Macario Jones DO Ordered Studies 08/23/23 10:25 [place] lumbar spine 2-3V Routine Hospital Course (1) Neurogenic claudication due to lumbar spinal stenosis: Patient underwent multilevel lumbar decompression and fusion tolerated this well was taken to orthopedic for postoperative. She progressed appropriately throughout her hospital stay. CHANG drain decreasing well. Pain well-controlled. Extra strength testing. Subsequently discharged home. Discharge orders instructions from the chart for further review. Total Time Total Time Spent Total Time Spent (In Minutes): 20 minutes Discharge Plan Discharge Items Patient Disposition: Home - Self-Care Reason For Visit: Spinal Stenosis of Lumbar Region with Neurogenic C Discharge Diagnosis: Lumbar spinal stenosis with neurogenic claudication Activity: As commented below Non-emergency contact: Primary Care Provider Call non-emergency contact if: you have any medication questions Follow-up/Referrals: Ale Langley, Philip.N.P. [Outside Practitioners] - (Follow up within one week of hospital discharge - discuss BP medication ) PCP,NO [Primary Care Provider] - Diet: Regular Addtl Attending Provider Instructions: ACTIVITY RECOMMENDATIONS: SELF CARE INSTRUCTIONS AFTER THORACIC/LUMBAR FUSIONS 1. You may walk to your tolerance. It is good exercise for your legs and back. Expect some back and intermittent leg aches and pains. 2. You may perform "counter-top" level activities (make a sandwich, alfredo with a project, etc.). 3. No bending or lifting of more than 10 pounds or back twisting of any nature (roll like a log when turning in bed). 4. You may ride in a car for 20-30 minutes at a time. No driving until after your first visit with your doctor. 5. Frequent changes of position and restricting sitting to 30 minutes at a time will help limit the amount of back spasms and stiffness you may experience. 6. You may discontinue the use of ambulatory aids (cane, crutches, etc.) once your strength and confidence allow. 7. You may inspector quality assurance the shower and let water strike your incision when you arrive home at least once daily. Do not take a tub bath, sit in a hot tub or go into a swimming pool until after your first recheck in the office. SPECIAL CARE INSTRUCTIONS: VERY IMPORTANT TO READ AND REVIEW A. Your surgical incision has been closed with a cosmetic suture under the skin that will dissolve in about 6 weeks. In 14 days, you can use a pair of clean scissors and cut the suture that is left outside of the skin at the ends of your incision. 1. The small skin tapes can be removed 7 days after surgery if they have not fallen off by that point. 2. You may keep the wound open to air as much as possible to promote healing after post-op day number 5 unless told otherwise by your doctor. 3. If you think the wound looks like it is becoming infected (redness or worsening drainage) and/or you are experiencing fever, chill or worsening back pain and muscle spasms, contact the office so that we may evaluate you as soon as possible. B. Complications are uncommon, but please contact us if you have any signs or symptoms of: 1. wound infection (fever higher than 102.5 degrees F, redness, separation of wound, drainage, or increasing pain from the incision) 2. blood clots in legs (pain, swelling, redness and warmth in legs) 3. urinary tract infection (fever higher than 102.5 degrees F, burning upon urination or increased frequency of urination) 4. nerve problems (inability to walk on your toes or heels, numbness, loss of bowel or bladder control) 5. any other symptoms that concern you C. Please call the office at if you have any concerns or questions about your operation or recovery. D. No smoking! Smoking drastically decreases the chance of a solid fusion. E. Do not take any anti-inflammatory medications (Indocin, Advil, Motrin, Aspirin, Naprosyn, etc.) as these may inhibit the chance of a solid fusion. Tylenol is okay to take for pain. MANAGING PAIN AFTER SPINAL SURGERY 1. Narcotic medication is intended for short-term use and will be provided for surgical pain. Surgical pain usually lasts for a period of 4-6 weeks. Narcotic medication includes Percocet, Vicodin, Darvocet, Tylenol #3 or Lortab. 2. Longer-term pain is more appropriately treated with non-narcotic medication such as Tylenol ES. 3. Muscle spasm is not appropriately treated with narcotics. Muscle relaxers such as Soma, Flexeril or Skelaxin can be used along with Tylenol ES. 4. Remember that we all live with some "aches and pains". This is not unusual or uncommon after an injury or as we get older. a. Back pain is expected and may include muscle spasms for 4 to 6 weeks after surgery. The pain should gradually improve. If the pain worsens for no apparent reason, please contact the office. b. Intermittent leg pain may also be experienced and should not be concerned about unless it worsens for no apparent reason. If so, please contact the office. 5. We will provide appropriate medication within the normal guidelines of their prescribed use. We will also be very cautious and aware of potential abuse and extended duration of patients' medication needs. a. Pain medications are for your comfort and to assist with sleep and rest so that the tissue can heal. They are not provided in order to return to normal activity and should not be used through the day. To do so or worsening pain at night can result from ongoing tissue damage and development of tolerance to the prescribed medicine. 6. Please allow 2-3 days to process refills. Prescriptions will not be mailed but must be picked up at the office. FOLLOW UP VISIT: Keep your scheduled follow-up appointment. Any questions, please call the office at . Addtl Kettle Tender Provider Instructions: You were having low blood pressures during your stay - as we discussed this could be caused from your decreased overall pain, the pain medication or decreased activity. Would like you to continue on 50mg of losartan daily at home. Check your BP if you are able at home. You will need to discuss this with your PCP at your follow up Pending Studies at Discharge: No Stand-Alone Forms: [employer], Smoking Cessation Medications and DC Order Prescriptions: New tramadol 50 mg tablet 50 mg PO Q6H PRN (Reason: pain, moderate) Qty: 30 0RF oxycodone 5 mg tablet 5 mg PO Q6H PRN (Reason: pain) Qty: 30 0RF losartan 50 mg Tablet 50 mg PO QAM 30 Days Qty: 30 0RF Continued furosemide [Lasix] 40 mg Tablet 40 mg PO DAILY PRN (Reason: Edema) atorvastatin [Lipitor] 40 mg Tablet 40 mg PO HS cyanocobalamin (vitamin B-12) [Vitamin B-12] 1,000 mcg Tablet 1,000 mcg PO QAM thiamine HCl (vitamin B1) [Vitamin B-1] 100 mg Tablet 100 mg PO QAM omeprazole 40 mg Capsule,Delayed Release(Dr/Ec) 40 mg PO DAILY PRN (Reason: gerd) gabapentin 300 mg Capsule 300 mg PO TID montelukast 10 mg Tablet 10 mg PO HS metoprolol succinate 25 mg Tablet Extended Release 24 Hr 12.5 mg PO QAM cholecalciferol (vitamin D3) [Vitamin D3] 125 mcg (5,000 unit) Tablet 125 mcg PO QAM aspirin 81 mg Capsule 81 mg PO QAM Discontinued losartan 100 mg Tablet 100 mg PO QAM Discharge Orders: Discharge Order (Routine); Ordered 08/27/23 Ordered By: Macario Jones Admission Data Admit Date/Time: 08/23/23 13:21 Attending Provider: Macario Jones Admit Provider: Macario Jones Primary Care Provider: PCP,NO Other Providers: Vince Wade
[2023-08-27] MEDS ORDERED: CHOLECALCIFEROL 125 MCG (5,000 UNITS) TAB PO SCH (09:00)
--- NOTE | 2023-08-27 10:01 | Hospitalist Progress Note ---
Date of Service August 27, 2023 Assessment & Plan (1) S/P spinal surgery: Plan: Lumbar spinal fusion with Dr. Jones on 08/23 - DVT PPx, fluids, and pain control per the primary team Hemoglobin 14.2 --> 10.6, acute blood loss anemia - Notable 950 cc EBL during surgery - Hgb stable 08/25 PT/OT consulted - recommend home at discharge, plan for this afternoon discussed continued bowel regiment at home while on narcotics (2) Hypertension: Plan: Okay to continue metoprolol Losartan decreased to 50mg 08/26 Patient asymptomatic with episodes of hypotension. will continue Lostartan 50mg at discharge (3) Hyperlipidemia: Plan: Continue atorvastatin (4) GERD (gastroesophageal reflux disease): Plan: Continue omeprazole, or pantoprazole equivalent (5) Hx of myocardial infarction: Plan: Okay to continue aspirin daily for heart stents (6) Hemochromatosis: Plan: Per patient, blood work every 4 months has not needed phlebotomy recently Plan Disposition: medically stable VTE PPx: Teds/SCDs Thank you for allowing us to participate in the care of this patient, we will sign off. Admission and Anticipated Discharge Date Admission Date: August 23, 2023 Subjective Patient sitting up in the chair, feels well today. Had a bowel movement yesterday after suppository. Plan to d/c home today Review of Systems Review of Systems: All systems reviewed & are unremarkable except as noted in Subjective Physical Exam Physical Exam: General: NAD, VS as above Resp: normal respiratory effort, lungs clear to auscultation CV: RRR, no murmur, Abd: normal bowel sounds, non tender, no hepatosplenomegaly Extremities: Moves all extremities, bilateral lower extremity isidro hose in place. No edema Neuro: A&O x3, Results & Data Results & Data Vital Signs (Past 12 Hours) Vital Signs Temp Pulse Resp BP Pulse Ox O2 Del Method 08/27/23 07:36 36.8 C 55 L 16 146/74 H 94 Room Air PG Care Time/CCT Total # of Minutes Spent Total Time Spent with Patient: Total time spent is greater than 50% in coordination of care (as documented) at patient's floor/unit and/or counseling patient: Coding Level of Care Code 54749 SUB INP/OBS CARE 2/35MIN Diagnoses S/P spinal surgery Z98.890 Hypertension I10 Hyperlipidemia E78.5 GERD (gastroesophageal reflux disease) K21.9 Hx of myocardial infarction I25.2 Hemochromatosis E83.119
== END 2023-08-27 15:42 | disposition home or self-care (01) | DRG 454 ==
LOC: ASU 08:38 → 3N 13:21
DX: I11.0 Hypertensive heart disease with heart failure; M48.07 Spinal stenosis, lumbosacral region; M48.062 Spinal stenosis, lumbar region with neurogenic claudication; I95.9 Hypotension, unspecified; Z79.899 Other long term (current) drug therapy; I25.2 Old myocardial infarction; K21.9 Gastro-esophageal reflux disease without esophagitis; Z95.5 Presence of coronary angioplasty implant and graft; J45.909 Unspecified asthma, uncomplicated; E78.5 Hyperlipidemia, unspecified; D62 Acute posthemorrhagic anemia; I50.30 Unspecified diastolic (congestive) heart failure; Z88.8 Allergy status to other drugs, medicaments and biological substances; Z79.82 Long term (current) use of aspirin; Z87.891 Personal history of nicotine dependence